=== PATIENT | female | born 1990 | race Caucasian/White ===

== ENCOUNTER 2020-07-25 08:35 | Outpatient (NON) | payer OTHER, SELFPAY ==
[2020-07-25 22:42] LABS: SARS-CoV-2 RNA PCR Negative
== END 2020-07-25 08:36 ==
LOC: ANHCOVIDDT 08:39
PROVIDERS: PCP Family Medicine; Visit Provider Family Medicine
DX: Z20.822 Contact with and (suspected) exposure to COVID-19 (principal); B34.9 Viral infection, unspecified
CPT/HCPCS: C9803; U0003; U0005